=== PATIENT | male | born 1945 | race Caucasian/White ===

== ENCOUNTER → 2024-08-31 07:09 | Outpatient (REF) | payer MEDICARE, BC, SELFPAY ==
[2024-08-31 08:56] LABS: Hematocrit 46.4 % (39.0-52.0); Hemoglobin 16.2 g/dL (13.0-18.0); Mean Corp Hgb Conc. 34.9 g/dL (33.0-37.0); Mean Corpuscular Hgb 31.3 pg (27.0-31.0); Mean Corpuscular Volume 89.6 fL (80.0-94.0); Mean Platelet Volume 10.1 fL (7.4-10.4); Platelet Count 168 10^3/uL (130-400); Red Blood Cell Count 5.18 10^6/uL (4.70-6.10); Red Cell Dist. Width 12.9 % (11.5-14.5)
[2024-08-31 08:58] LABS: Urine Albumin Negative (Neg - Trace); Urine Bilirubin Negative (Negative); Urine Character Clear (Clear); Urine Color Yellow; Urine Glucose Negative (Negative); Urine Ketone Negative (Negative); Urine Leukocyte Negative (Negative); Urine Nitrite Negative (Negative); Urine Occult Blood Negative (Negative); Urine Urobilinogen Negative (Neg - 1+)
[2024-08-31 10:11] LABS: Blood Urea Nitrogen 23 mg/dl (9-20); Calcium 9.5 mg/dl (8.4-10.2); Carbon Dioxide 24 mmol/L (22-30); Chloride 108 mmol/L (98-107); Glucose 86 mg/dl (70-99); Potassium 4.4 mmol/L (3.5-5.1); Sodium 145 mmol/L (135-145); eGFR > 60.00
== END ==
LOC: SDSPAT 07:09
PROVIDERS: ATTENDING PHYSICIAN Specialist; FAMILY PHYSICIAN Internal Medicine
DX: Z01.818 Encounter for other preprocedural examination (principal)
CPT/HCPCS: 80048; 81003; 85027; 93005

== ENCOUNTER 2024-09-12 06:20 | Day surgery (SDC) | payer MEDICARE, BC, SELFPAY ==
[2024-08-31 08:38] VITALS: BMI 31.3
--- NOTE | 2024-09-01 15:22 | PTCARENOTE ---
Patients 08/30 ECG abnormal- reviewed by Dr. Servin- no additional interventions required
[2024-09-12] VITALS (13 sets, daily range): BP systolic 121–170; BP diastolic 64–85; BMI 31.3
[2024-09-12] MEDS: Pyridium 200 MG PO (07:59)
--- NOTE | 2024-09-12 10:28 | W.IMMPOSTOP ---
Surgical Immed Post Op Note
-
Primary Surgeon: Maricruz
Assisting Surgeon: None
Pre-op Diagnosis: BPH
Post-op Diagnosis: BPH
Procedure Performed: TURP
Anesthesia Type: GET
Specimen / Cultures: prostate chips
Estimated Blood Loss: 10 ml
Complications: None
[2024-09-12 10:59] LABS: Blood Urea Nitrogen 19 mg/dl (9-20); Calcium 9.2 mg/dl (8.4-10.2); Carbon Dioxide 23 mmol/L (22-30); Chloride 107 mmol/L (98-107); Estimated Creatinine Clearance 69 ml/min; Glucose 117 mg/dl (70-99); Sodium 139 mmol/L (135-145); eGFR > 60.00
[2024-09-12] MEDS: LR 1000 IV (11:01)
[2024-09-12] MEDS: LEVAQUIN 100 IV (12:32)
[2024-09-12] MEDS: COLACE 100 MG PO ×2 (12:33→17:34)
--- NOTE | 2024-09-12 12:48 | PTCARENOTE ---
Admitted to room 2112 from PACU. AOx3, pleasant, VSS. Denies pain at this time. Received w/ CBI infusing, urine yellow/pink tinged. Plan of care discussed. Encouraged to make needs known.
[2024-09-13] MEDS: LR 1000 IV (00:16)
[2024-09-13] MEDS: TYLENOL 650 MG PO ×2 (02:10→22:21)
[2024-09-13 03:12] VITALS: BP 125/70
[2024-09-13 05:47] LABS: Hematocrit 43.1 % (39.0-52.0); Mean Corp Hgb Conc. 34.8 g/dL (33.0-37.0); Mean Corpuscular Hgb 31.3 pg (27.0-31.0); Mean Corpuscular Volume 89.8 fL (80.0-94.0); Platelet Count 160 10^3/uL (130-400); Red Cell Dist. Width 12.8 % (11.5-14.5); White Blood Cell Count 19.7 10^3/uL (4.8-10.8)
[2024-09-13 06:12] LABS: Blood Urea Nitrogen 17 mg/dl (9-20); Calcium 9.1 mg/dl (8.4-10.2); Carbon Dioxide 23 mmol/L (22-30); Chloride 107 mmol/L (98-107); Estimated Creatinine Clearance 78 ml/min; Glucose 108 mg/dl (70-99); Potassium 3.5 mmol/L (3.5-5.1); Sodium 140 mmol/L (135-145); eGFR > 60.00
[2024-09-13 08:04] VITALS: BP 138/71
[2024-09-13] MEDS: COLACE 100 MG PO ×3 (08:29→17:51)
[2024-09-13] MEDS: ORETIC 25 MG PO (08:29)
--- NOTE | 2024-09-13 08:58 | W.PN.SURGUPD ---
Surgical Update
Surgical Update
Stable 1 day s/p TURP
Afeb
Leukocytosis as expected
VSS
Urine draining clear on slow drip CBI
No SP or CVAT
---
Stop CBI at noon
Junior out in AM
--- NOTE | 2024-09-13 12:08 | CM ---
CM met with pt bedside
Pt resides with his spouse in a [place] with 2 [place]
Pt notes independence at baseline with no ADs, drives+
Has a SPC, WW and RTS for use if needed for prior injury
Denies financial insecurities
PCP- Sumit Olivas
Rx- [facility]
Pt is status post day 1 TURP
No dc needs anticipated
Discharge Disposition- home, no needs anticipated
[2024-09-13] MEDS: LEVAQUIN 100 IV (13:06)
[2024-09-13] MEDS: LR IV (14:45)
[2024-09-13 15:00] VITALS: BP 165/86
[2024-09-13 23:40] VITALS: BP 156/73
[2024-09-14 07:44] VITALS: BP 161/88
[2024-09-14] MEDS: COLACE 100 MG PO (08:49)
[2024-09-14] MEDS: ORETIC 25 MG PO (08:49)
--- NOTE | 2024-09-14 10:07 | W.DS.TRANS ---
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
-
Discharge Instructions:
Sleep Apnea Risk Intermediate
Discharge Diagnosis/Procedures BPH
Diet No restrictions
Activity No strenuous activity
Additional Activity for 10 days
Driving Restrictions No driving for 24 hours
Bathing Restrictions None
Instructions:
Stand-Alone Forms:
Changes to Home Medications: No
Discharge Medications:
DC Medications w/original date entered in [employer]
hydrochlorothiazide 25 mg tablet 25 mg PO DAILY 08/31/24
naproxen sodium 220 mg tablet (Aleve) 220 mg PO PRN PRN Pain 08/31/24
Home Medication Changes
Pending Results: No
--- NOTE | 2024-09-14 10:26 | CM ---
Patient seen at bedside. s/p TURP
Per nursing hillman removed & voiding
Patient outpatient status
no needs
PLAN: home, no needs
to transport
[2024-09-14] MEDS: FLUAD (65 yr+) 2024-2025 FORMULA 0.5 ML IM (10:53)
[2024-09-14 10:56] VITALS: BP 148/76
--- NOTE | 2024-09-14 11:07 | PTCARENOTE ---
dischrge instructions reviewed with pt who verbalized understanding. pt refused wheelchair escort and decided to walk instead
== END 2024-09-14 11:16 | disposition home or self-care (01) ==
LOC: SDS 06:20
PROVIDERS: ATTENDING PHYSICIAN Specialist; FAMILY PHYSICIAN Internal Medicine
DX: N40.0 Benign prostatic hyperplasia without lower urinary tract symptoms (principal)
CPT/HCPCS: 52601; 88305; 80048; 85027; 90662; G0008

== ENCOUNTER → 2024-12-14 10:23 | Outpatient (REF) | payer MEDICARE, BC, SELFPAY | LOC: RAD 10:23 | PROVIDERS: ATTENDING PHYSICIAN Internal Medicine; FAMILY PHYSICIAN Internal Medicine | DX: M25.551 Pain in right hip (principal) | CPT/HCPCS: 73502 ==

== ENCOUNTER 2025-01-26 14:54 | Outpatient (RCR) | payer MEDICARE, BC, SELFPAY | END 2025-01-26 23:59 | disposition home or self-care (01) | LOC: RPT 14:54 | PROVIDERS: ATTENDING PHYSICIAN Internal Medicine; FAMILY PHYSICIAN Internal Medicine | DX: M16.11 Unilateral primary osteoarthritis, right hip (principal); Z73.6 Limitation of activities due to disability; M62.81 Muscle weakness (generalized); Z98.1 Arthrodesis status; R29.6 Repeated falls | CPT/HCPCS: 97110; 97162 ==

== ENCOUNTER 2025-02-02 15:10 | Outpatient (RCR) | payer MEDICARE, BC, SELFPAY | END 2025-02-28 06:53 | disposition home or self-care (01) | LOC: RPT 15:10 | PROVIDERS: ATTENDING PHYSICIAN Internal Medicine; FAMILY PHYSICIAN Internal Medicine | DX: M16.11 Unilateral primary osteoarthritis, right hip (principal); M62.81 Muscle weakness (generalized); Z73.6 Limitation of activities due to disability; Z98.1 Arthrodesis status; R29.6 Repeated falls | CPT/HCPCS: 97110; 97140 ==

== ENCOUNTER 2025-05-30 14:38 | Outpatient (RCR) | payer MEDICARE, BC, SELFPAY | END 2025-05-30 23:59 | disposition home or self-care (01) | LOC: RPT 14:38 | PROVIDERS: ATTENDING PHYSICIAN Internal Medicine | DX: Z47.1 Aftercare following joint replacement surgery (principal); Z96.641 Presence of right artificial hip joint; M25.551 Pain in right hip; Z73.6 Limitation of activities due to disability | CPT/HCPCS: 97110; 97112; 97163; 97530 ==

== ENCOUNTER 2025-06-21 14:57 | Outpatient (RCR) | payer MEDICARE, BC, SELFPAY | END 2025-06-21 23:59 | disposition home or self-care (01) | LOC: RPT 14:57 | PROVIDERS: ATTENDING PHYSICIAN Internal Medicine | DX: Z47.1 Aftercare following joint replacement surgery (principal); Z96.641 Presence of right artificial hip joint; M25.551 Pain in right hip; Z73.6 Limitation of activities due to disability; R26.2 Difficulty in walking, not elsewhere classified; M62.81 Muscle weakness (generalized) | CPT/HCPCS: 97110; 97112; 97530 ==

== ENCOUNTER → 2025-10-16 15:39 | Outpatient (REF) | payer MEDICARE, BC, SELFPAY | LOC: RAD 15:39 | PROVIDERS: ATTENDING PHYSICIAN Internal Medicine | DX: R06.02 Shortness of breath (principal) | CPT/HCPCS: 71046 ==

== ENCOUNTER → 2025-10-27 08:46 | Outpatient (REF) | payer MEDICARE, BC, SELFPAY | LOC: RCS 08:46 | PROVIDERS: ATTENDING PHYSICIAN Internal Medicine | DX: R06.02 Shortness of breath (principal) | CPT/HCPCS: 93306 ==